=== PATIENT | female | born 1945 | race Caucasian/White ===

== ENCOUNTER 2018-02-07 00:01 | Emergency (ER) | END 2018-02-07 04:10 | disposition home or self-care (01) ==

== ENCOUNTER 2019-01-28 19:24 | Emergency (ER) | payer SELFPAY ==
[~2019-01-28] VITALS: Ht 165.1 cm; Wt 71.8 kg
[~2019-01-28 19:24] MED LIST: HYDR-3980 PO; LIDO20SO19 MM
[2019-01-28 19:34] VITALS: Ht 165.1 cm; Wt 71.8 kg
[2019-01-28] MEDS ORDERED: SOD CHLORIDE 0.9% 1,000 ML IV STA (21:53)
[2019-01-28] MEDS ORDERED: ONDANSETRON 4 MG INJ IV STA (21:53)
[2019-01-28] MEDS ORDERED: LIDOCAINE/MYLANTA 40 ML BTL PO STA (21:53)
[2019-01-28] MEDS ORDERED: BELLADONNA/PHENOBARBITAL TAB PO STA (21:53)
[2019-01-28] MEDS ORDERED: MECLIZINE 12.5 MG TAB PO ONE (22:00)
[2019-01-28] MEDS ORDERED: MECL12.574 PO (23:29)
--- NOTE | 2019-01-28 23:48 | ERD ---
ER Documentation Chief Complaint Chief Complaint N&V w/hi blood glucose today;hx DM HPI This is a very pleasant 73-year-old female that presents to the emergency department elevated blood glucose. The patient did have an episode of nausea and nonbloody nonbilious emesis several hours ago. She went to an urgent care clinic. They stated that her blood glucose was high and she immediately sent to the emergency department to be further evaluated. She stated that the nausea and vomiting occurred after she had an episode of a spinning sensation. She felt as though the room was spinning around her. She denied a headache. She had no tinnitus. She denies any neck pain. She said no fevers no shaking no chills ROS All systems reviewed and are negative except as per history of present illness. Medications Home Meds Active Scripts Meclizine Hcl* (Antivert*) 12.5 Mg Tab, 12.5 MG PO Q6H PRN for DIZZINESS, #20 TAB Prov:DUY ROCA MD 01/28/19 Hydrocodone/Acetaminophen ([place] 10-325 Tablet) 1 Each Tablet, 1 TAB PO Q6H PRN for PAIN, #20 TAB Prov:ALICJA PARADA DO 02/07/18 Lidocaine (Lidocaine Viscous) 100 Ml Soln, 15 ML MM BEFORE MEALS, #120 ML Prov:ALICJA PARADA DO 02/07/18 Allergies Allergies: Coded Allergies: No Known Drug Allergies (Verified Allergy, Unknown, 02/07/18) PMhx/Soc History of Surgery: No Anesthesia Reaction: No Hx Neurological Disorder: No Hx Miscellaneous Medical Probl: Yes (DM) Hx Alcohol Use: No Hx Substance Use: No Hx Tobacco Use: No Smoking Status: Never smoker Physical Exam Vitals Vital Signs Date Temp Pulse Resp B/P (MAP) Pulse Ox O2 O2 Flow FiO2 Time Delivery Rate 01/28/19 67 18 129/76 99 Room Air 22:49 (93) 01/28/19 70 18 148/82 100 Room Air 21:40 (104) 01/28/19 97.9 75 18 181/52 98 19:34 (95) Physical Exam Constitutional:Well-developed. Well-nourished. HEENT:Normocephalic. Atraumatic.Pupils were equal round reactive to light. Moist mucous membranes.No tonsillar exudates. Neck: No nuchal rigidity. No lymphadenopathy. No posterior cervical spine tenderness or step-offs. Respiratory: Not using accessory muscles of respiration.Lungs were clear to auscultation bilaterally. No rhonchi. No rales. No wheezing. Cardiovascular: Regular rate regular rhythm.No murmurs. No rubs were appreciated.S1, S2 normal. Distal pulses are palpable 2+ bilaterally. GI: Abdomen was soft. Nontender. Non Distended. No pulsatile abdominal masses or bruits. No rebound. No guarding. Bowel sounds were present and normal. Muscle skeletal: Full range of motion of both the upper and lower extremities bilaterally.Normal muscle tone.No assymetrical calf tenderness or swelling. Skin: No petechia, no purpura. No lesions on the palms or the soles of the feet. No maculopapular rash. NEURO: Patient was alert, awake, orientated x3.No facial droop. Gait observed and normal with no ataxia.Speech had regular rate and rhythm. No focal neurological deficits. Peripheral fatigable nystagmus Result Diagram: 01/28/19214801/28/192148 Results 24 hrs Laboratory Tests Test 01/28/19 21:49 01/28/19 21:50 White Blood Count 8.7 10^3/ul Red Blood Count 4.33 10^6/ul Hemoglobin 12.8 g/dl Hematocrit 38.1 % Mean Corpuscular Volume 88.0 fl Mean Corpuscular Hemoglobin 29.6 pg Mean Corpuscular Hemoglobin Concent 33.6 g/dl Red Cell Distribution Width 11.9 % Platelet Count 228 10^3/UL Mean Platelet Volume 9.4 fl Immature Granulocytes % 0.300 % Neutrophils % 48.1 % Lymphocytes % 41.9 % Monocytes % 6.8 % Eosinophils % 2.2 % Basophils % 0.7 % Nucleated Red Blood Cells % 0.0 /100WBC Immature Granulocytes # 0.030 10^3/ul Neutrophils # 4.2 10^3/ul Lymphocytes # 3.6 10^3/ul Monocytes # 0.6 10^3/ul Eosinophils # 0.2 10^3/ul Basophils # 0.1 10^3/ul Nucleated Red Blood Cells # 0.0 10^3/ul Prothrombin Time 12.1 Sec Prothrombin Time Ratio 0.9 INR International Normalized Ratio 0.89 Activated Partial Thromboplast Time 24.4 Sec Sodium Level 138 mmol/L Potassium Level 3.8 mmol/L Chloride Level 100 mmol/L Carbon Dioxide Level 28 mmol/L Anion Gap 10 Blood Urea Nitrogen 17 mg/dl Creatinine 0.81 mg/dl Est Glomerular Filtrat Rate mL/min mL/min Glucose Level 237 mg/dl Calcium Level 9.7 mg/dl Total Bilirubin 0.5 mg/dl Direct Bilirubin 0.00 mg/dl Indirect Bilirubin 0.5 mg/dl Aspartate Amino Transf (AST/SGOT) 30 IU/L Alanine Aminotransferase (ALT/SGPT) 24 IU/L Alkaline Phosphatase 84 IU/L Troponin I < 0.012 ng/ml Total Protein 8.0 g/dl Albumin 4.5 g/dl Globulin 3.50 g/dl Albumin/Globulin Ratio 1.28 Amylase Level 109 U/L Lipase 165 U/L Bedside Glucose 229 mg/dL Current Medications Medications Dose Sig/Manuel Start Time Status Last (Trade) Ordered Route PRN Stop Time Admin Dose Reason Admin Sodium 1,000 ml @ Q1H STAT 01/28/19 DC 01/28/19 Chloride 1,000 mls/hr IV 21:53 22:00 01/28/19 22:52 Ondansetron 4 mg ONCE STAT 01/28/19 DC 01/28/19 HCl (Zofran IV 21:53 22:00 Inj) 01/28/19 21:55 40 ml ONCE STAT 01/28/19 DC 01/28/19 Miscellaneous PO 21:53 22:00 Medication 01/28/19 21:55 (Gi Cocktail (2)) Belladonna/ 2 tab ONCE STAT 01/28/19 DC 01/28/19 Phenobarbital PO 21:53 22:00 () 01/28/19 21:55 Meclizine 25 mg ONCE ONCE 01/28/19 DC 01/28/19 HCl PO 22:00 22:01 (Antivert) 01/28/19 22:01 Clonidine 0.1 mg ONCE ONCE 01/28/19 DC 01/28/19 (Catapres) PO 23:00 23:23 01/28/19 23:01 Procedures/MDM This patient was seen and evaluated by myself. The patient presented to the emergency department complaining of dizziness. My differential diagnosis included but was not limited to hypovolemia, myocardial infarction, pulmonary embolism, hypoglycemia, hypoxia, anemia, vasovagal episode, hypothyroidism, anxiety, peripheral or central vertigo. The patient was placed on a monitor worker, continuous pulse oximetry and IV access established by nursing staff. The patient appeared to have peripheral vertigo. She received Antivert. She had no signs of increased intracranial pressure and I did not feel is necessary at this time to obtain a CT scan the patient's head. I obtained a 12-lead EKG tracing to rule out for atypical myocardial fraction. 12 Lead EKG tracing ordered and reviewed by myself showed: Normal sinus rhythm of 75 bpm and no arrhythmia. OK interval normal. QRS duration normal. No ST segment elevation No ST segment depression. No changes consistent with acute ischemia. The patient blood glucose was elevated at 237. However there is no signs of ketosis. The patient received IV fluids to improve her blood glucose. She was also given Zofran. Observation Note: Time: 4 hours Family Hx: No Hypertension Evaluation: Multiple exams showed improving symptoms and no evidence of wors ening of her symptoms. Departure Diagnosis: Primary Impression: Vertigo Additional Impression: Hyperglycemia Condition: Fair Patient Instructions: Hyperglycemia (High Blood Sugar), Vertigo, Unspecified DUY ROCA MD Jan 28, 2019 23:48
[2019-01-29 00:05] VITALS: BP 139/91; PULSE 71; RESP 20
== END 2019-01-29 00:15 | disposition home or self-care (01) ==
LOC: E/R 19:24
DX: E11.65 Type 2 diabetes mellitus with hyperglycemia (principal); R42 Dizziness and giddiness
CPT/HCPCS: 80053; 82150; 82962; 83690; 84484; 85025; 85610; 85730; 93005; 96374; 99284; J2405; J7030